=== PATIENT | male | born 1960 | race Caucasian/White ===

== ENCOUNTER 2023-05-31 08:11 | Emergency (ER) | payer MEDICAID ==
[~2023-05-31] VITALS: Ht 180.3 cm; Wt 127.0 kg
[2023-05-31 08:17] VITALS: BP_SYST 156; PULSE 71; RESP 18; TEMP 97.4; O2SAT 96
[2023-05-31 08:50] LABS: BASOPHILS % (AUTO) 0.7 % (0.0-2.0); EOSINOPHILS # (AUTO) 0.1 K/uL (0.0-0.4); EOSINOPHILS % (AUTO) 1.5 % (0.0-4.0); HEMATOCRIT 43.1 % (36-54); HEMOGLOBIN 15.1 g/dL (14.0-18.0); LYMPHOCYTES # (AUTO) 1.9 K/uL (1.0-5.5); LYMPHOCYTES % (AUTO) 28.5 % (20.5-51.5); MEAN CORPUSCULAR HEMOGLOBIN 32 pg (27-31); MEAN CORPUSCULAR HGB CONC 35 % (32-36); MEAN CORPUSCULAR VOLUME 91 fL (79.0-98.0); MONOCYTES # (AUTO) 0.5 K/uL (0.0-1.0); MONOCYTES % (AUTO) 7.4 % (1.7-9.3); NEUTROPHILS # (AUTO) 4.1 K/uL (1.8-7.7); NEUTROPHILS % (AUTO) 61.9 % (40.0-70.0); PLATELET COUNT (AUTO) 179 K/uL (130-430); RED BLOOD CELL COUNT(AUTO) 4.71 MIL/uL (4.2-6.2); RED CELL DISTRIBUTION WIDTH 13.4 % (9.0-15.0); WHITE BLOOD COUNT (AUTO) 6.6 K/uL (4.8-10.8)
[2023-05-31] MEDS ORDERED: HYDR-3917 PO (09:10)
[2023-05-31] MEDS ORDERED: CLIN-142 PO (09:10)
[2023-05-31] MEDS: CLINDAMYCIN HCL 150 MG CAPSULE PO ONE (09:21)
[2023-05-31] MEDS: IBUPROFEN 800 MG TABLET PO ONE (09:21)
[2023-05-31 09:27] LABS: CALCIUM 9.2 mg/dL (8.4-11.0); CREATININE 1.29 mg/dL (0.55-1.30); POTASSIUM 3.7 mmol/L (3.5-5.1)
[2023-05-31 09:47] VITALS: BP_SYST 148; PULSE 75; RESP 18; TEMP 97.8; O2SAT 95
== END 2023-05-31 09:47 | disposition home or self-care (01) ==
LOC: SED 08:11
DX: L03.211 Cellulitis of face (principal); K04.7 Periapical abscess without sinus; Z79.899 Other long term (current) drug therapy
CPT/HCPCS: 36415; 80048; 83605; 85025; 99283